=== PATIENT | male | born 1935 | race Caucasian/White ===

== ENCOUNTER 2018-01-02 04:27 | Inpatient (IN) | payer MEDICARE ==
--- NOTE | 2018-01-02 04:54 | CT ---
EXAMINATION TYPE: CT brain wo con for TPA DATE OF EXAM: 01/02/2018 COMPARISON: NONE HISTORY: Neuro deficits CT DLP: mGycm Automated exposure control for dose reduction was used. FINDINGS: There is cerebral cortical atrophy. There is no mass effect nor midline shift. There is no sign of in tracranial hemorrhage. There is mucosal thickening in the maxillary sinuses with fluid levels. IMPRESSION: MAXILLARY SINUSITIS. CEREBRAL ATROPHY. NO ACUTE INTRACRANIAL ABNORMALITY.
--- NOTE | 2018-01-02 04:58 | CT ---
EXAMINATION TYPE: CT angio head neck DATE OF EXAM: 01/02/2018 HISTORY: r/o stroke COMPARISON: NONE CT DLP: 1578.690 mGycm. Automated Exposure Control for Dose Reduction was Utilized. TECHNIQUE: CTA scan of the neck is performed with IV Contrast, patient injected with 65 mL of Isovue 370, axial images are obtained, coronal and sagittal reformatted images are reviewed. Three-D recons tructed images are created on an independent workstation and reviewed. FINDINGS: There is normal branching pattern of the great vessels on the aortic arch. There is bilateral arteria l flow in the vertebral arteries which are fairly symmetric. There is arterial flow in the common int ernal and external carotid arteries bilaterally. There is wide patency of the carotid artery bifurcat ions. There is arterial flow in the anterior middle and posterior cerebral arteries. There is arterial flow in the vertebrobasilar artery system. The basilar artery fills from the left side. I see no evidence of aneurysm or neovascularity. There is no mass effect. There is no evidence of int racranial arterial stenosis. There is normal contrast opacification of the venous sinuses. IMPRESSION: Negative CT angiogram of the neck. Negative CT angiogram of the brain.
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
[2018-01-02 05:08] LABS: Basophils % (A) 0 %; Eosinophils # (A) 0.2 k/uL (0-0.7); Eosinophils % (A) 3 %; HCT 47.7 % (39.0-53.0); HGB 16.5 gm/dL (13.0-17.5); Lymphocytes # (A) 2.1 k/uL (1.0-4.8); Lymphocytes % (A) 27 %; MCH 32.3 pg (25.0-35.0); MCHC 34.6 g/dL (31.0-37.0); MCV 93.3 fL (80.0-100.0); Mean Platelet Volume 7.1; Monocytes # (A) 0.6 k/uL (0-1.0); Monocytes % (A) 7 %; Neutrophils # (A) 4.6 k/uL (1.3-7.7); Neutrophils % (A) 61 %; Platelet Count 166 k/uL (150-450); RBC 5.11 m/uL (4.30-5.90); RDW 12.8 % (11.5-15.5); WBC 7.5 k/uL (3.8-10.6)
[2018-01-02 05:21] LABS: INR 1.1 (<1.2); Partial Thromboplastin Time 22.9 sec (22.0-30.0); Prothrombin Time 10.8 sec (9.0-12.0)
[2018-01-02 05:31] LABS: Albumin 3.6 g/dL (3.5-5.0); Anion Gap 13 mmol/L; Calcium 8.6 mg/dL (8.4-10.2); Carbon Dioxide 20 mmol/L (22-30); Chloride 105 mmol/L (98-107); Glucose 134 mg/dL (74-99); Sodium 138 mmol/L (137-145); Total Bilirubin 0.8 mg/dL (0.2-1.3); Total Protein 6.2 g/dL (6.3-8.2)
[2018-01-02 05:33] LABS: ALT 29 U/L (21-72); AST 33 U/L (17-59); Alkaline Phosphatase 67 U/L (38-126); Blood Urea Nitrogen 18 mg/dL (9-20); Potassium 4.3 mmol/L (3.5-5.1)
[2018-01-02 05:39] LABS: Creatine Kinase 433 U/L (55-170)
[2018-01-02 05:52] LABS: Troponin I <0.012 ng/mL (0.000-0.034)
[2018-01-02 05:55] LABS: Creatine Kinase MB 3.2 ng/mL (0.0-2.4)
[2018-01-02] MEDS ORDERED: ASPIRIN 325 MG TAB PO STA (06:19)
[2018-01-02] MEDS ORDERED: ASPIRIN 300 MG SUPP RECTAL STA (06:20)
[2018-01-02] MEDS: SODIUM CHLORIDE 0.9% 1,000 ML IV SCH ×2 (06:30→17:32)
--- NOTE | 2018-01-02 06:32 | XR ---
EXAMINATION TYPE: XR chest 1V portable DATE OF EXAM: 01/02/2018 COMPARISON: NONE HISTORY: Possible stroke TECHNIQUE: Single frontal view of the chest is obtained. FINDINGS: Heart is enlarged. There is some pulmonary vascular congestion. Thoracic aorta is atheroma tous. There are chest leads. There is coarse interstitial pulmonary markings. IMPRESSION: Cardiomegaly. Pulmonary fibrosis. Mild pulmonary congestion without overt heart failure. No pleural fluid seen.
--- NOTE | 2018-01-02 09:13 | ECHOF ---
Referral Reason:Thrombus MEASUREMENTS -------- HEIGHT: 180.3 cm WEIGHT: 90.3 kg BP: 143/63 RVIDd: 2.5 cm (< 3.3) IVSd: 1.0 cm (0.6 - 1.1) LVIDd: 6.2 cm (3.9 - 5.3) LVPWd: 1.3 cm (0.6 - 1.1) IVSs: 1.2 cm LVIDs: 5.1 cm LVPWs: 1.3 cm Ao Diam: 3.3 cm (2.0 - 3.7) AV Cusp: 2.2 cm (1.5 - 2.6) LA Diam: 3.5 cm (2.7 - 3.8) MV EXCURSION: 20.130 mm (> 18.000) MV EF SLOPE: 57 mm/s (70 - 150) EPSS: 2.3 cm MV E Kem: 0.75 m/s MV DecT: 290 ms MV A Kem: 0.90 m/s MV E/A Ratio: 0.83 RAP: 5.00 mmHg RVSP: 23.10 mmHg FINDINGS -------- Sinus rhythm. This was a technically difficult study with suboptimal views. The left ventricle is severely dilated. There is mild concentric left ventricular hypertrophy. Th ere is severe global hypokinesis of LV . Overall left ventricular systolic function is severely imp aired with, an EF between 20 - 25 %. The right ventricle is normal in size and function. The left atrium is normal in size. The right atrium is normal in size. Lumason used Aortic valve is trileaflet and is mildly thickened. The mitral valve leaflets are mildly thickened. Mild mitral regurgitation is present. Mild tricuspid regurgitation present. The right ventricular systolic pressure, as measured by Doppl er, is 23.10mmHg. Pulmonic valve appears structurally normal. The aortic root size is normal. The pericardium is normal. CONCLUSIONS -------- 1. Sinus rhythm. 2. This was a technically difficult study with suboptimal views. 3. The left ventricle is severely dilated. 4. There is mild concentric left ventricular hypertrophy. 5. There is severe global hypokinesis of LV . 6. Overall left ventricular systolic function is severely impaired with, an EF between 20 - 25 %. 7. The right ventricle is normal in size and function. 8. The left atrium is normal in size. 9. The right atrium is normal in size. 10. Lumason used 11. Aortic valve is trileaflet and is mildly thickened. 12. The mitral valve leaflets are mildly thickened. 13. Mild mitral regurgitation is present. 14. Mild tricuspid regurgitation present. 15. The right ventricular systolic pressure, as measured by Doppler, is 23.10mmHg. 16. Pulmonic valve appears structurally normal. 17. The aortic root size is normal. 18. The pericardium is normal. DRY CHARGE PROCESS ATTENDANT: Rafia Smith RDCS
[2018-01-02] MEDS ORDERED: NALOXONE 0.4 MG/ML 1 ML VIAL IV PRN (12:00)
[2018-01-02] MEDS ORDERED: ACETAMINOPHEN TAB 325 MG TAB PO PRN (12:00)
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
--- NOTE | 2018-01-02 14:34 | MR ---
MR brain without contrast HISTORY: Stroke Multiplanar multisequence imaging through the brain, correlation to CT brain 01/02/2018 There is motion, fast brain protocol utilized due to patient condition. There is restricted diffusion present within the right temporal parietal lobe, insula with correspond ing hyperintensity noted on inversion recovery and T2-weighted sequences. No evident hemorrhage or hy drocephalus. Cortical atrophy is likely age-related. No evident hemorrhage or hydrocephalus. Cerebell opontine angles, corpus callosum, pituitary, cervical medullary junction are normal. Bilateral maxill telly sinus disease noted incidentally. The orbits show symmetric appearance. IMPRESSION: Subacute infarct compatible with patient's history.
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
[2018-01-02 18:20] LABS: Hemoglobin A1C 5.9 % (4.0-6.0)
[2018-01-02] MEDS: ATORVASTATIN 20 MG TAB PO SCH (19:59)
[2018-01-02 22:09] LABS: Magnesium 2.1 mg/dL (1.6-2.3); Potassium 3.8 mmol/L (3.5-5.1)
[2018-01-03] MEDS ORDERED: KETOROLAC 30 MG/ML 1 ML VIAL IVP ONE (03:07)
[2018-01-03] MEDS: SODIUM CHLORIDE 0.9% 1,000 ML IV SCH ×3 (03:33→23:02)
[2018-01-03 06:20] LABS: Basophils % (A) 0 %; Eosinophils % (A) 0 %; HCT 44.2 % (39.0-53.0); HGB 14.8 gm/dL (13.0-17.5); Lymphocytes # (A) 1.3 k/uL (1.0-4.8); Lymphocytes % (A) 14 %; MCH 31.4 pg (25.0-35.0); MCHC 33.5 g/dL (31.0-37.0); MCV 93.7 fL (80.0-100.0); Monocytes # (A) 0.7 k/uL (0-1.0); Monocytes % (A) 7 %; Neutrophils # (A) 7.6 k/uL (1.3-7.7); Neutrophils % (A) 78 %; Platelet Count 202 k/uL (150-450); RBC 4.72 m/uL (4.30-5.90); RDW 12.6 % (11.5-15.5); WBC 9.7 k/uL (3.8-10.6)
[2018-01-03 06:34] LABS: Anion Gap 11 mmol/L; Blood Urea Nitrogen 16 mg/dL (9-20); Calcium 8.4 mg/dL (8.4-10.2); Carbon Dioxide 19 mmol/L (22-30); Chloride 112 mmol/L (98-107); Cholesterol 182 mg/dL (<200); Glucose 112 mg/dL (74-99); HDL Cholesterol 40 mg/dL (40-60); LDL Cholesterol,Calculated 123 mg/dL (0-99); Magnesium 2.2 mg/dL (1.6-2.3); Phosphorus 2.6 mg/dL (2.5-4.5); Potassium 4.1 mmol/L (3.5-5.1); Sodium 142 mmol/L (137-145); Triglycerides 97 mg/dL (<150)
--- NOTE | 2018-01-03 07:49 | CT ---
EXAMINATION TYPE: CT brain wo con DATE OF EXAM: 01/03/2018 COMPARISON: Prior CT and MR brain 01/02/2018 HISTORY: R/O CVA, 24 hour follow-up. CT DLP: 1251 mGycm Automated exposure control for dose reduction was used. Helical acquisition through the brain FINDINGS: There is been interval loss of espinoza-white junction, decrease in density along the right parietal lobe as noted on prior brain MRI compatible with subacute infarct. There is no mass effect or hemorrhage. No hydrocephalus. No midline shift. Bilateral maxillary sinus disease again noted. IMPRESSION: SUBACUTE CEREBROVASCULAR ACCIDENT RIGHT PARIETAL LOBE.
[2018-01-03] MEDS: ASPIRIN 300 MG SUPP RECTAL SCH (10:00)
--- NOTE | 2018-01-03 12:54 | P.PN ---
Subjective Progress Note Date: 01/03/18 Principal diagnosis: Left sided weakness Patient's strength is improving on the left side. He failed the swallow evaluation twice according to nursing. Objective - Vital Signs Vital signs: Vital Signs Temp 96.9 F L 01/03/18 12:00 Pulse 74 01/03/18 12:00 Resp 18 01/03/18 12:00 BP 109/50 01/03/18 12:00 Pulse Ox 95 01/03/18 12:00 Intake & Output 01/02/18 01/03/18 01/03/18 18:59 06:59 18:59 Intake Total 100 Output Total 700 Balance -700 100 Weight 78.5 kg Intake: Intake, IV Titration 100 Amount Sodium Chloride 0.9% 1, 100 000 ml @ 100 mls/hr IV . Q10H [facility] Rx#:[id number] Output: Urine 700 Other: # Voids 1 - Exam Constitutional: No acute distress, conversant, pleasant Eyes:Anicteric sclerae, moist conjunctiva, no lid-lag, PERRLA, ENMT: Oropharynx clear, no erythema, exudates Neck: Supple, FROM, no masses, or JVD, No carotid bruits, No thyromegaly Lungs: Clear to auscultation, Clear to percussion, Normal respiratory effort, no accessory muscle use Cardiovascular: Heart regular in rate and rhythm, No murmurs, gallops, or rubs, No peripheral edema Abdominal: Soft, Nontender, no guarding, rebound or rigidity, Normoactive bowel sounds, No hepatomegaly, No splenomegaly, No palpable mass Skin: Normal temperature, tone, texture, turgor, no induration, No subcutaneous nodules, No rash, lesions, No ulcers Extremities: No digital cyanosis, No clubbing, Pedal pulses intact and symmetrical, Radial pulses intact and symmetrical, No calf tenderness Neuro: Left lower extremity and left arm 4+ out of 5, left facial droop, slurred speech, right gaze preference resolved, left-sided numbness improved - Labs CBC & Chem 7: 01/03/18 05:44 01/03/18 05:44 Labs: Abnormal Lab Results - Last 24 Hours (Table) 01/03/18 Range/Units 05:44 Chloride 112 H (98-107) mmol/L Carbon Dioxide 19 L (22-30) mmol/L Glucose 112 H (74-99) mg/dL LDL Cholesterol, Calc 123 H (0-99) mg/dL Assessment and Plan Plan: Acute stroke Continue telemetry--- patient had 30 beats runs of V. tach, consult cardiology Aspirin 300 mg rectally daily Neurology consult appreciated MRI brain showed right parietal stroke, echocardiogram reviewed, CT angiogram of the head and neck within normal limits. Swallow evaluation by speech therapy Continue PT, OT Check HbA1c Lipid profile showed elevated LDL, statin started DVT prophylaxis SCDs
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
[2018-01-03] MEDS: ATORVASTATIN 20 MG TAB PO SCH (20:10)
--- NOTE | 2018-01-04 06:30 | P.CONS ---
History of Present Illness - Chief Complaint Gait disturbance - History of Present Illness I had the opportunity to see patient for inpatient rehab consultation with regard to gait disturbance. [facility] left- sided weakness and slurring of speech. Seen in consultation by neurology diagnosed right-sided temporal stroke. Angiogram CT negative. Chest x-ray with cardiomegaly, pulmonary fibrosis, mild CHF. Brain MRI with subacute right temporoparietal infarct. Head CT follow-up demonstrates subacute right parietal infarct. PT reports improvement to minimal assist with 2 person for functional mobility and for safety and balance poor. OT and speech prescribed. Previous functional history as elicited from patient: 82-year-old right-handed white male who lives with significant other in 2 floor home. Retired. Significant other does the laundry. They share the cooking. Describes independent with driving, gait without device and standing shower. History of smoking but doesn't smoke or drink currently. Denies regular PMD. Family history of father was a smoker. Past Medical History Past Medical History: No Reported History History of Any Multi-Drug Resistant Organisms: None Reported Past Surgical History: No Surgical Hx Reported Past Psychological History: No Psychological Hx Reported Smoking Status: Former smoker Past Alcohol Use History: None Reported Past Drug Use History: None Reported - Past Family History Mother Family Medical History: Cancer Medications and Allergies Home Medications Medication Instructions Recorded Confirmed Type Ibuprofen [Motrin] 600 mg PO Q8HR PRN 01/02/18 01/02/18 History Methocarbamol [Robaxin] 500 mg PO TID 01/02/18 01/02/18 History Allergies Allergy/AdvReac Type Severity Reaction Status Date / Time No Known Allergies Allergy Verified 01/02/18 10:41 Physical Exam Vitals: Vital Signs Temp Pulse Resp BP Pulse Ox 01/04/18 03:41 97.2 F L 60 17 119/69 94 L 01/03/18 23:49 97 F L 70 17 136/51 95 01/03/18 20:00 97 F L 52 L 16 127/51 96 01/03/18 15:00 98.4 F 86 18 129/60 96 01/03/18 12:00 96.9 F L 74 18 109/50 95 01/03/18 07:39 98 F 60 18 112/51 93 L Intake and Output 01/03/18 01/03/18 01/04/18 14:59 22:59 06:59 Intake Total 100 700 Output Total 325 100 Balance 100 375 -100 Intake: Intake, IV Titration 100 700 Amount Sodium Chloride 0.9% 1, 100 700 000 ml @ 100 mls/hr IV . Q10H [facility] Rx#:[id number] Output: Urine 325 100 Other: # Voids 2 1 Weight 83.9 kg Skin: Good color, texture, turgor. General: Medium build and comfortable appearance. Head: Normocephalic, atraumatic. Eyes: Symmetric. Pupils equal round. Ears: Symmetric. Hearing within normal limits. Mouth: Clear. Neck: Supple. Carotid without bruit. Cardiac: Regular rate and rhythm. Lungs: Clear anteriorly and posteriorly. Abdomen: Soft active nontender. Extremities: Normal tone. Neurological: Mental status: Alert, cooperative, pleasant. Cranial nerves: Symmetric facial tone and trapezius. Speech slightly dysarthric. Motor: Normal strength and isolation all 4 limbs but with at least mild apraxia left side. Sensation: Intact throughout. DTRs: Symmetric and equal throughout. Mobility: Did not attempt to sit or stand this a.m. Results CBC & Chem 7: 01/03/18 05:44 01/03/18 05:44 Labs: Abnormal Lab Results - Last 24 Hours (Table) 01/03/18 Range/Units 05:44 Chloride 112 H (98-107) mmol/L Carbon Dioxide 19 L (22-30) mmol/L Glucose 112 H (74-99) mg/dL LDL Cholesterol, Calc 123 H (0-99) mg/dL Chest x-ray: report reviewed (Cardiomegaly, pulmonary fibrosis and mild CHF.) CT scan - chest: report reviewed (Follow-up CT demonstrates subacute right parietal infarct. Angiogram CT negative.) MRI - head: report reviewed (Subacute right temporoparietal infarct.) Assessment and Plan (1) Cerebrovascular accident Current Visit: Yes Status: Acute Code(s): I63.9 - CEREBRAL INFARCTION, UNSPECIFIED SNOMED Code(s): 781379913 Plan: Impression: 1. Gait disturbance. 2. Right-sided CVA with resultant left hemiparesthesias. Comments and plan: At this time PT ongoing with safety concerns noted. OT and speech prescribed. Follow therapies with yourself. Have discussed possible inpatient rehab with patient. Rehab unit full today.
[2018-01-04 07:16] LABS: Glucose,Whole Blood 134 mg/dL (75-99)
[2018-01-04] MEDS: SODIUM CHLORIDE 0.9% 1,000 ML IV SCH ×2 (07:48→17:45)
[2018-01-04 07:49] VITALS: RESP 18
[2018-01-04] MEDS: METOPROLOL TARTRATE 5 MG/5 ML VIAL IVP SCH ×2 (09:20→16:13)
[2018-01-04] MEDS: ASPIRIN 300 MG SUPP RECTAL SCH (09:57)
--- NOTE | 2018-01-04 11:56 | CONS ---
CONSULTATION CHIEF COMPLAINT: Ventricular tachycardia. Kane is an 82-year-old gentleman who is admitted to hospital with left-sided hemiplegia and Cardiology has been consulted because of ventricular tachycardia. The patient prior to coming in did not have any medical history. He was not on any prescription medications and did not even have a regular physician. On his initial presentation, he had slurred speech, weakness of the left upper and lower extremities. The speech difficulty has remained. The left facial droop exists. Patient still has problems with swallowing, but the weakness on the left side has improved significantly. Yesterday he had a run of nonsustained VT and an echocardiogram on him shows severe LV systolic dysfunction with diffuse global hypokinesis. There is no prior history of coronary artery disease or congestive heart failure. There is no history of prior cardiac arrhythmia. I reviewed his EKGs, his labs, echocardiogram and rhythm strips. The patient has normal magnesium, serum potassium and one set of troponin is negative. PAST MEDICAL HISTORY: Negative for hypertension, diabetes dyslipidemia. MEDICATIONS: Medications at home include Motrin, Robaxin. ALLERGIES: There are no known drug allergies. FAMILY HISTORY: Negative for premature coronary artery disease. SOCIAL HISTORY: Negative for current smoking, EtOH abuse, or drug abuse. REVIEW OF SYSTEMS: HEENT is unremarkable. CARDIAC: As described above. RESPIRATORY: As described above. GI: Negative. GENITOURINARY: Negative. ALLERGY/IMMUNOLOGICAL: Negative. SKIN: Negative. MUSCULOSKELETAL: Significant for arthritis. PSYCHOSOCIAL: Negative. ENDOCRINE: Negative. HEMATOLOGICAL: Negative. DERM: Negative. CONSTITUTIONAL: Negative. ONCOLOGICAL: Negative. RUSSIAN HISTORY PROFESSOR: Negative. Rest of the system review is not relevant. PHYSICAL EXAMINATION: On exam, the patient is afebrile. Heart rate is 90 beats per minute. Blood pressure is 119/54, respiratory rate is 18, O2 sat is 95% on room air. There is no jugular venous distention. Carotid upstroke is normal. There is no bruit. Chest exam reveals good air entry bilaterally. Heart exam reveals first and second heart sounds, irregular rhythm. No murmur. No rub. Abdomen is soft, nontender. Examination of extremities did not reveal any edema. Peripheral pulses are palpable. RUSSIAN HISTORY PROFESSOR: There is left-sided facial droop and he has slurred speech. LABS: Labs show a hemoglobin of 14.8, platelet count is 202. Potassium is 4.1. Creatinine is 0.8. EKG shows sinus rhythm with frequent PVCs, PVCs and nonspecific ST-T wave changes Echocardiogram shows severe LV systolic dysfunction. ASSESSMENT: 1. Acute cerebrovascular accident with left hemiparesis. 2. Ventricular tachycardia. 3. Nonischemic cardiomyopathy. PLAN: I am going to start the patient on IV Lopressor and once he is able to swallow medications, I will put him on oral beta blockers. If necessary, I will consider amiodarone on him. When his neurological deficits improve, we will consider doing a stress test on him to rule out ischemic heart disease and if necessary perform cardiac catheterization on him. MMANSONL / IJN: [id number] /
--- NOTE | 2018-01-04 12:17 | P.PN ---
Subjective Progress Note Date: 01/04/18 Principal diagnosis: Left sided weakness Patient has not been cooperative with the staff regarding his care. He just refused the video swallow evaluation. Objective - Vital Signs Vital signs: Vital Signs Temp 97.5 F L 01/04/18 07:48 Pulse 96 01/04/18 07:48 Resp 18 01/04/18 07:48 BP 119/54 01/04/18 07:48 Pulse Ox 95 01/04/18 09:15 Intake & Output 01/03/18 01/04/18 01/04/18 18:59 06:59 18:59 Intake Total 800 Output Total 425 Balance 800 -425 Weight 83.9 kg Intake: Intake, IV Titration 800 Amount Sodium Chloride 0.9% 1, 800 000 ml @ 100 mls/hr IV . Q10H [facility] Rx#:[id number] Output: Urine 425 Other: # Voids 1 - Exam Constitutional: No acute distress, conversant, pleasant Eyes:Anicteric sclerae, moist conjunctiva, no lid-lag, PERRLA, ENMT: Oropharynx clear, no erythema, exudates Neck: Supple, FROM, no masses, or JVD, No carotid bruits, No thyromegaly Lungs: Clear to auscultation, Clear to percussion, Normal respiratory effort, no accessory muscle use Cardiovascular: Heart regular in rate and rhythm, No murmurs, gallops, or rubs, No peripheral edema Abdominal: Soft, Nontender, no guarding, rebound or rigidity, Normoactive bowel sounds, No hepatomegaly, No splenomegaly, No palpable mass Skin: Normal temperature, tone, texture, turgor, no induration, No subcutaneous nodules, No rash, lesions, No ulcers Extremities: No digital cyanosis, No clubbing, Pedal pulses intact and symmetrical, Radial pulses intact and symmetrical, No calf tenderness Neuro: Left lower extremity and left arm 4+ out of 5, left facial droop, slurred speech, right gaze preference resolved, left-sided numbness improved - Labs CBC & Chem 7: 01/03/18 05:44 01/03/18 05:44 Labs: Abnormal Lab Results - Last 24 Hours (Table) 01/02/18 Range/Units 04:30 POC Glucose (mg/dL) 134 H (75-99) mg/dL Assessment and Plan Plan: Acute stroke Continue telemetry--- patient had 30 beats runs of V. tach, consult cardiology Aspirin 300 mg rectally daily Neurology consult appreciated MRI brain showed right parietal stroke, echocardiogram reviewed--is 20-25%. CT angiogram of the head and neck within normal limits. Swallow evaluation by speech therapy--recommend video swallow evaluation. Continue PT, OT HbA1c indicates no diabetes. Lipid profile showed elevated LDL, statin started Newly discovered nonischemic cardiomyopathy, nonsustained ventricular tachycardia Patient had 30 beats run of V. tach on 01/03 Seen by cardiology Started on Lopressor IV. DVT prophylaxis SCDs As patient was asking to go home and was refusing procedures I discussed the case with his girlfriend who was on her way in to try to convince him to stay and cooperate.
--- NOTE | 2018-01-04 14:49 | FL ---
Modified barium swallow HISTORY: Difficulty swallowing 2 minutes fluoroscopy time supplied. No intraoperative images Patient was given barium mixed with solids and liquids and evaluated in real-time projection laterall y. Aspiration was noted on thin liquids, residuals were noted within the vallecula during the exam. Corado sient laryngeal penetration noted on multiple swallowing attempts. There was suggestion of slight asp iration on nectar thick fluid. See dictated report from speech pathology.
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
--- NOTE | 2018-01-04 18:11 | EEG ---
ELECTROENCEPHALOGRAM REPORT DATE OF SERVICE: 01/04/2018 REASON FOR TESTING: Stroke. DESCRIPTION OF THE PROCEDURE: This EEG was performed using a 21-channel digital electroencephalograph, following international 10-20 system. DESCRIPTION OF THE RECORDING: From the beginning of the tracing, and with the patient's eyes closed, the background rhythm was mostly consisting of 8 Hz alpha frequency in the posterior occipital leads. No obvious asymmetry is seen. Frequent muscle artifacts are seen. Photic stimulation was performed with a minimal driving response seen. No pathological waves were elicited. Later in the tracing, the patient does reach stage II of sleep, and occasional sleep spindles are seen. No epileptiform discharges were seen. His EKG lead showed an irregularly irregular rhythm with a normal rate. INTERPRETATION: This asleep and awake EEG can be considered within normal limits, except his EKG lead showed an irregularly irregular rhythm with a normal rate. No epileptiform discharges were seen. The absence of epileptiform discharges does not rule out the diagnosis of epilepsy; therefore clinical correlation is recommended. MMDEONTE / IJN: [id number] /
[2018-01-04] MEDS: ATORVASTATIN 20 MG TAB PO SCH (21:13)
[2018-01-04] MEDS: METOPROLOL TARTRATE 25 MG TAB PO SCH (21:14)
[2018-01-05] MEDS: SODIUM CHLORIDE 0.9% 1,000 ML IV SCH ×2 (04:35→08:00)
[2018-01-05] MEDS: METOPROLOL TARTRATE 25 MG TAB PO SCH (07:59)
[2018-01-05] MEDS ORDERED: ASPIRIN 325 MG TAB PO SCH (09:00)
[2018-01-05] MEDS ORDERED: LISINOPRIL 2.5 MG TAB PO SCH (11:15)
[2018-01-05 11:28] VITALS: BP 117/57; PULSE 55; TEMP 97.2
--- NOTE | 2018-01-06 09:43 | P.PN ---
Subjective Progress Note Date: 01/05/18 This is a pleasant 82-year-old gentleman who was admitted to the hospital with left-sided hemiplegia and diagnosed with CVA. Cardiology was asked to see the patient in consultation for ventricular tachycardia. Echocardiogram showed severe LV systolic dysfunction with global hypokinesis. He has no prior history of CAD, CHF, or arrhythmia. He has had no atrial fibrillation since admission. He has been started on a beta eloy. He continues to have PVCs but no further runs of VT. Upon examination, the patient is sitting up in a chair. He is getting some strength back in his left upper extremity. He underwent swallow study and has been placed on a special diet of thickened liquids. He is anticipating discharge to rehab. Objective - Vital Signs Vital signs: Vital Signs Temp 97.2 F L 01/05/18 11:27 Pulse 55 L 01/05/18 11:28 Resp 18 01/05/18 11:28 BP 117/57 01/05/18 11:27 Pulse Ox 95 01/05/18 11:27 Intake & Output 01/04/18 01/05/18 01/05/18 18:59 06:59 18:59 Intake Total 804 807 6407 Output Total 100 400 200 Balance 740 0 1710 Weight 89 kg Intake: Intake, IV Titration 600 1200 Amount Sodium Chloride 0.9% 1, 600 1200 000 ml @ 100 mls/hr IV . Q10H [facility] Rx#:[id number] Oral 240 400 710 Output: Urine 100 400 200 Other: Voiding Method Toilet Toilet Urinal Urinal # Voids 0 1 1 # Bowel Movements 0 1 - Exam HEENT: Head is atraumatic, normocephalic. Pupils equal, round. Sclera anicteric. Conjunctiva are clear. Mucous membranes of the mouth are moist. Neck is supple. There is no elevated jugular venous pressure. left-sided facial droop noted. HEART EXAMINATION: Heart S1-S2 regular, no murmur noted CHEST EXAMINATION: Lungs are clear to auscultation and precussion. No chest wall tenderness is noted on palpation or with deep breathing. ABDOMEN: Soft, nontender. Bowel sounds are heard. No organomegaly noted. EXTREMITIES: 2+ peripheral pulses with evidence of trace peripheral edema and no calf tenderness noted. significant left arm weakness noted NEUROLOGIC patient is awake, alert and oriented x3. - Labs CBC & Chem 7: 01/03/18 05:44 01/03/18 05:44 Assessment and Plan Assessment: #1 Acute CVA with left hemiparesis #2 ventricular tachycardia #3 nonischemic cardiomyopathy Plan: From cardiology's perspective we will start a low dose TRACIE inhibitor. We will set up for a 30-day event monitor, to assess for underlying paroxysmal atrial fibrillation, as an outpatient through our office. He will follow-up with Dr. Galloway in about 6 weeks. We will consider doing a stress test on him at a later date to rule out ischemic heart disease. The above dictated assessment and findings were discussed with signing physician. The impression and plan of care have been directed as dictated. Lisbeth Bautista, Nurse Practitioner, acting as scribe for signing physician.
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
--- NOTE | 2018-01-07 14:32 | CDI ---
Last Revision, June 2017 Documentation Clarification Form Date: 01/07/18 From: Deborah Mynor Laurie Castro, [employer] Polygraph Operator Hours-8:30 am & 5 pm Carl Admit Date: 01/02/2018 6:27:00 AM Patient Name: Kane Rodriges Visit Number: [id number] Discharge Date: 01/05/18 ATTENTION: The Clinical Documentation Specialists (CDI) and [facility] Coding Staff appreciate your assistance in clarifying documentation. Please respond to the clarification below the line at the bottom and electronically sign. The CDI & [facility] Coding staff will review the response and follow-up if needed. Please note: Queries are made part of the Legal Health Record. If you have any questions, please contact the author of this message via ITS. Dr. Curtis Branch Discharge summary states "Patient was also started on Lisinopril because of the finding of new congestive heart failure." "New onset cardiomyopathy,unknown etiology". History/Risk Factors: New stroke VS/Pulse OX: BNP: none Echocardiogram Results: severe KV systolic dyfunction with global hypokineiss Chest X Ray: Cardiomegaly. Pulmonary fibrosis. Mild pulmonary congestion without overt heart failure. No pleural fluid seen. In your professional opinion, can you please clarify the acuity and type of CHF if known? Systolic Heart Failure Diastolic Heart Failure Systolic & Diastolic Heart Failure Acute Chronic Acute on Chronic Heart Failure Unable to Determine Other, please specify Please continue to document in your progress notes and discharge summary in order to capture severity of illness and risk of mortality. Include clinical findings that support your diagnosis. Chronic CHF MTDD
== END 2018-01-05 16:54 | disposition home health service (06) | DRG 65 ==
LOC: EC 04:27 → 6SEL 06:27
PROVIDERS: ADMIT Internal Medicine; ATTEND Internal Medicine
DX: I63.9 Cerebral infarction, unspecified (principal); G81.04 Flaccid hemiplegia affecting left nondominant side; I47.2 Ventricular tachycardia; I42.9 Cardiomyopathy, unspecified; I50.9 Heart failure, unspecified; J84.10 Pulmonary fibrosis, unspecified; R13.10 Dysphagia, unspecified; E78.5 Hyperlipidemia, unspecified; R29.810 Facial weakness; R47.81 Slurred speech; R40.2362 Coma scale, best motor response, obeys commands, at arrival to emergency department; R40.2142 Coma scale, eyes open, spontaneous, at arrival to emergency department; R40.2252 Coma scale, best verbal response, oriented, at arrival to emergency department; R29.717 NIHSS score 17; R47.1 Dysarthria and anarthria; R48.2 Apraxia; R26.9 Unspecified abnormalities of gait and mobility; I44.0 Atrioventricular block, first degree; I49.3 Ventricular premature depolarization; Z79.899 Other long term (current) drug therapy; Z87.891 Personal history of nicotine dependence; Z81.2 Family history of tobacco abuse and dependence; Z80.9 Family history of malignant neoplasm, unspecified
CPT/HCPCS: 36415; 70450; 70496; 70498; 70551; 71045; 74230; 80048; 80053; 80061; 82550; 82553; 83036; 83090; 83735; 84100; 84132; 84443; 84484; 85025; 85610; 85730; 93005; 93306; 94760; 95819; 99291

== ENCOUNTER → 2018-02-10 | Outpatient (CLI) | payer OTHER, MEDICARE ==
--- NOTE | 2018-02-10 16:20 | MR ---
EXAMINATION TYPE: MR lumbar spine wo con DATE OF EXAM: 02/10/2018 COMPARISON: None HISTORY: Back pain. TECHNIQUE: Multiplanar, multisequence images of the lumbar spine were acquired. FINDINGS: The lumbar spine vertebral bodies maintain normal vertebral body heights and alignment. The re is straightening of the usual lumbar lordosis. There is multilevel degenerative disc disease with disc desiccation. In addition to patchy bone marrow signal there are Modic type II endplate changes o f the inferior endplate of L4 and T1/T2 hyperintense probable vertebral body hemangioma of L1. Additi onal probable slightly atypical predominantly T1/T2 hyperintense vertebral body hemangioma seen of th e left lateral margin of the L5 vertebral body. However, there is appearance of an infiltrative bone marrow process within the L3 vertebral body with T1 and T2 hypointensity nearly throughout. Bowing of the inferior endplate is likely discogenic. The visualized spinal cord is of unremarkable signal and morphology with the conus medullaris termina ting at L1-L2. L1-L2: There is a very small broad-based disc bulge and facet arthropathy without significant neural foraminal narrowing or spinal canal stenosis. L2-L3: There is a small broad-based disc bulge and facet arthropathy without significant spinal canal stenosis nor neural foraminal narrowing. L3-L4: There is a broad-based disc bulge, facet arthropathy and minimal ligamentum flavum buckling re sulting in very mild neural foraminal narrowing. No spinal canal stenosis. L4-L5: There is a broad-based disc bulge and facet arthropathy with ligamentum flavum buckling result ing in moderate right and mild to moderate left neural foraminal narrowing. Mild spinal canal stenosi s is also seen. L5-S1: There is a broad-based disc bulge and facet arthropathy resulting in moderate bilateral neural foraminal narrowing and without spinal canal stenosis. IMPRESSION: 1. Abnormal bone marrow signal within the L3 vertebral body suggestive of an infiltrative process. Nu clear medicine bone scan as well as additional postcontrast lumbar spine MR images could be performed for further assessment as there is concern for underlying malignancy. Correlation with PSA is also r ecommended. 2. Multilevel moderate degenerative disc disease resulting in mild spinal canal stenosis at L4-L5 and variable degrees of neural foraminal narrowing as described above.
== END | disposition home or self-care (01) ==
LOC: RADMRIMAIN 14:49
PROVIDERS: ATTEND Internal Medicine
DX: M48.061 Spinal stenosis, lumbar region without neurogenic claudication (principal); M99.73 Connective tissue and disc stenosis of intervertebral foramina of lumbar region; M51.36 Other intervertebral disc degeneration, lumbar region; R93.7 Abnormal findings on diagnostic imaging of other parts of musculoskeletal system
CPT/HCPCS: 72148

== ENCOUNTER → 2018-02-25 | Outpatient (CLI) | payer OTHER, MEDICARE ==
[2018-02-25 12:13] LABS: HCT 50.6 % (39.0-53.0); HGB 16.6 gm/dL (13.0-17.5); MCH 31.3 pg (25.0-35.0); MCHC 32.8 g/dL (31.0-37.0); MCV 95.6 fL (80.0-100.0); Platelet Count 234 k/uL (150-450); RDW 13.5 % (11.5-15.5)
[2018-02-25 12:22] LABS: Anion Gap 8 mmol/L; Blood Urea Nitrogen 14 mg/dL (9-20); Carbon Dioxide 22 mmol/L (22-30); Chloride 108 mmol/L (98-107); Potassium 4.8 mmol/L (3.5-5.1); Sodium 138 mmol/L (137-145)
== END | disposition home or self-care (01) ==
LOC: LABPAT 11:26
PROVIDERS: ATTEND Internal Medicine Cardiovascular Disease
DX: Z01.812 Encounter for preprocedural laboratory examination (principal); I25.5 Ischemic cardiomyopathy; I47.2 Ventricular tachycardia
CPT/HCPCS: 36415; 80051; 82565; 84520; 85027

== ENCOUNTER 2018-02-26 06:13 | Day surgery (SDC) | payer OTHER, MEDICARE ==
[2018-02-23 14:21] VITALS: BMI 23.3
[~2018-02-26 06:13] MED LIST: ALPRAZolam 0.25 MG TAB PO PRN; ALPRAZolam 0.5 MG TAB PO PRN; ASPIRIN 325 MG TAB PO STA; ATORVASTATIN 80 MG TAB PO STA; NITROGLYCERIN SL TABS 0.4 MG TAB SUBLINGUAL PRN; SODIUM CHLORIDE 0.9% 1,000 ML in EMPTY BAG 1 BAG IV ONE
[2018-02-26] MEDS ORDERED: SODIUM CHLORIDE 0.9% 1,000 ML IV ONE (06:43)
[2018-02-26 07:20] VITALS: RESP 16; TEMP 97.1
[2018-02-26] MEDS ORDERED: diphenhydrAMINE 50 MG/ML 1 ML VIAL ONE (07:38)
[2018-02-26] MEDS ORDERED: fentaNYL (PF) 50 MCG/ML 2 ML AMP ONE (07:38)
[2018-02-26] MEDS ORDERED: LIDOCAINE 1% INJ 10MG/ML (20 ML MDV) SQ ONE (07:42)
[2018-02-26] MEDS ORDERED: diphenhydrAMINE 50 MG/ML 1 ML VIAL IVP ONE (07:42)
[2018-02-26] MEDS ORDERED: fentaNYL (PF) 50 MCG/ML 2 ML AMP IVP ONE (07:43)
[2018-02-26] MEDS ORDERED: IOPAMIDOL-370 125ML BTL INJ ONE (07:54)
[2018-02-26] MEDS ORDERED: RX INFO: IV CONTRAST WAS GIVEN 1 EACH MISC MISCELLANE PRN (08:03)
[2018-02-26] MEDS ORDERED: SODIUM CHLORIDE 0.9% 1,000 ML IV SCH (08:15)
--- NOTE | 2018-02-26 08:29 | CC ---
CARDIAC CATHETERIZATION REPORT INDICATION: Ischemic cardiomyopathy. This is an 82-year-old gentleman who was recently admitted to hospital with CVA and has had runs of nonsustained VT. Noninvasive studies on him showed severe LV systolic dysfunction with an ejection fraction of 25%. A subsequent stress test showed extensive inferior wall myocardial infarction without any significant areas of ischemia. The patient was advised to undergo invasive angiography to decide on revascularization. He had been explained of risks, benefits and alternatives. In particular, the risk of stroke, understood and accepted. PROCEDURE NOTE: After obtaining informed consent, left heart catheterization and coronary angiogram were performed via the right femoral artery using standard [place] catheters. Patient tolerated the procedure well without any obvious immediate complications. A femoral angiogram was performed and decision was made for manual hemostasis. Patient received moderate conscious sedation. Total sedation time was 14 minutes. FINDINGS: 1. HEMODYNAMICS: Left ventricular end-diastolic pressure is 20 mm. There is no significant gradient across THE aortic valve. 2. LEFT VENTRICULOGRAM: Left ventriculogram is not performed. 3. ANGIOGRAPHIC DATA: 4. Left main coronary artery: Left main coronary artery appears calcified but is free of significant stenosis. Divides into left anterior descending coronary artery and circumflex coronary artery. LAD is totally occluded in its mid portion. It gives off a large caliber diagonal branch that has a 70% to 80% stenosis in it. Distal LAD has homocollaterals. Circumflex coronary artery is a nondominant vessel, has an 80% stenosis in the ostial portion. Right coronary artery is chronically occluded in its midportion. Shows severe diffuse disease proximally. There are left-to- right collaterals and there are also [id number] collaterals. CONCLUSIONS: 1. Severe three-vessel coronary artery disease as described above. 2. Ischemic cardiomyopathy with severe left ventricular dysfunction. 3. Nonsustained ventricular tachycardia. PLAN: I talked to patient about the angiographic dated, talked to him about his treatment options including continued optimal medical therapy, surgical evaluation for possible bypass versus referral to a tertiary care center to consider catheter based revascularization. The patient is going to think over all these options. In the meantime, I am going to ask Dr. Zuñiga, the cardiothoracic surgeon, to evaluate the patient today. MMODL / IJN: [id number] /
[2018-02-26 10:53] VITALS: PULSE 54
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
[2018-02-26 11:50] VITALS: BP 103/66
== END 2018-02-26 15:03 | disposition home or self-care (01) ==
LOC: CATHCVL 06:13
PROVIDERS: ATTEND Internal Medicine Cardiovascular Disease
DX: I25.10 Atherosclerotic heart disease of native coronary artery without angina pectoris (principal); E78.5 Hyperlipidemia, unspecified; I25.2 Old myocardial infarction; I25.5 Ischemic cardiomyopathy; I25.82 Chronic total occlusion of coronary artery; Z87.891 Personal history of nicotine dependence; I69.354 Hemiplegia and hemiparesis following cerebral infarction affecting left non-dominant side; I47.2 Ventricular tachycardia; Z79.899 Other long term (current) drug therapy; Z79.82 Long term (current) use of aspirin
CPT/HCPCS: 93458; 99152; C1894; C1769; J1200; J2001; J3010; Q9967

== ENCOUNTER → 2018-03-23 | Outpatient (CLI) | payer OTHER, MEDICARE ==
--- NOTE | 2018-03-23 11:31 | MR ---
EXAMINATION TYPE: MR brain wo con DATE OF EXAM: 03/23/2018 COMPARISON: 01/02/2018 MRI, CT brain 01/03/2018 HISTORY: Stroke T1-weighted sagittal, T2, FLAIR, and diffusion axial, and T2 coronal coronal views of the brain are s ubmitted. There is no evidence of acute ischemia. There is a nasal septal deviation and changes of chronic sinusitis. There is an area of encephalomala desirae involving the right parietal lobe compatible with remote ischemia. Small focus of additional area of abnormal signal involving the left parietal cortex suggestive of remote ischemia Moderate generalized degenerative change. No midline shift or mass effect. White matter: There are approximately 5 areas of abnormal signal seen within the white matter. All measure less than 5 mm. No lesions perpendicular to ventricular system. No callosal lesions. Craniocervical junction maintained. Sella turcica has a normal appearance. No cerebellopontine angle mass. IMPRESSION: 1. No acute intracranial process. 2. Right parietal remote area of ischemia 3. Small area of remote ischemia involving the left parietal cortex. 4. minimal nonspecific white matter changes.
== END | disposition home or self-care (01) ==
LOC: RADMRIMAIN 08:50
PROVIDERS: ATTEND Psychiatry & Neurology Neurology
DX: R90.89 Other abnormal findings on diagnostic imaging of central nervous system (principal); Z86.73 Personal history of transient ischemic attack (TIA), and cerebral infarction without residual deficits
CPT/HCPCS: 70551